=== PATIENT | female | born 1975 | race Two or more races ===

== ENCOUNTER 2024-05-12 00:55 | Emergency (ER) | payer SELFPAY ==
[~2024-05-12] VITALS: Ht 167.6 cm; Wt 59.0 kg
[2024-05-12 00:57] VITALS: O2SAT 100
[2024-05-12 01:20] LABS: BASOPHILS % 0.2 % (0.0-2.0); EOSINOPHILS % 0.6 % (0.0-5.0); HEMATOCRIT. 47.6 % (36.0-48.0); HEMOGLOBIN. 15.8 g/dL (12.0-16.0); LYMPHOCYTES % 11.2 % (20.0-50.0); MEAN CORPUSCULAR HGB CONC 33.2 g/dL (31.0-37.0); MEAN CORPUSCULAR VOLUME 87.4 fL (81.0-99.0); MEAN PLATELET VOLUME 8.8 fl (7.4-10.4); MONOCYTES % 6.8 % (2.0-8.0); NEUTROPHILS % 81.2 % (40.0-76.0); PLATELET 313 x1000/uL (130-400); RED BLOOD CELL COUNT 5.44 mill/uL (4.2-5.4); RED CELL DISTRIBUTION WIDTH 13.5 % (11.6-14.6); WHITE BLOOD COUNT 6.3 x1000/uL (4.5-11.0)
[2024-05-12 01:29] LABS: DIFFERENTIAL COMMENT 1
[2024-05-12 01:36] LABS: POTASSIUM 3.7 mEq/L (3.5-5.1)
[2024-05-12 01:37] LABS: CALCIUM 9.5 mg/dL (8.7-10.4)
[2024-05-12 01:40] LABS: HCG SCREEN NEGATIVE
[2024-05-12] MEDS: SODIUM CHLORIDE 0.9% 1,000 ML IV NR (03:30)
[2024-05-12] MEDS: ONDANSETRON HCL 4MG/2ML INJ IV NR (03:45)
[2024-05-12] MEDS: FAMOTIDINE 20MG/2ML VIAL IV NR (03:45)
[2024-05-12] MEDS ORDERED: ONDA4TAB50 MT (05:36)
[2024-05-12 06:30] VITALS: BP 114/75; PULSE 86; RESP 17; TEMP 37.00296; O2SAT 99
== END 2024-05-12 08:10 | disposition home or self-care (01) ==
LOC: ER 00:55
DX: A05.9 Bacterial foodborne intoxication, unspecified (principal); R11.2 Nausea with vomiting, unspecified
CPT/HCPCS: 80048; 84703; 85025; 36415; 96361; 96374; 96375; 99284; J3490; J2405; Z7610